=== PATIENT | female | born 1930 | race Caucasian/White ===

== ENCOUNTER 2017-04-14 09:09 | Inpatient (IN) | payer OTHER, MEDICARE ==
[~2017-04-14] VITALS: Ht 165.1 cm; Wt 93.1 kg
[2017-04-14 09:16] VITALS: BP 191/82; PULSE 79; RESP 19; TEMP 97.8; O2SAT 97
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
[2017-04-14 10:33] LABS: AUTOMATED NEUTROPHIL # 6.5 TH/MM3 (1.8-7.7); BASOPHIL % 0.4 % (0.0-2.0); EOSINOPHIL # 0.4 TH/MM3 (0-0.4); EOSINOPHIL % 3.9 % (0.0-4.0); HEMATOCRIT 34.2 % (35.0-46.0); HEMO FLAGS DIFF FINAL; LYMPH % 25.4 % (9.0-44.0); LYMPHOCYTE # 2.6 TH/MM3 (1.0-4.8); MEAN CELL VOLUME 72.6 FL (80.0-100.0); MEAN CORPUSCULAR HEMOGLOBIN 22.8 PG (27.0-34.0); MEAN CORPUSCULAR HGB CONC 31.4 % (32.0-36.0); MONO % 7.9 % (0.0-8.0); NEUT % 62.4 % (16.0-70.0); PLATELET COUNT 119 TH/MM3 (150-450); RED BLOOD COUNT 4.72 MIL/MM3 (4.00-5.30); RED CELL DISTRIBUTION WIDTH 16.2 % (11.6-17.2); WHITE BLOOD COUNT 10.4 TH/MM3 (4.0-11.0)
[2017-04-14 10:43] LABS: BACTERIA, URINE RARE /hpf; BLOOD, URINE MOD (NEG); COMMENT (UR) CULTURE INDICATED; CULTURE IF INDICATED CULTURE INDICATED; GLUCOSE,URINE NEG (NEG); KETONE, URINE NEG (NEG); NITRITE,URINE NEG (NEG); URINE COLOR YELLOW (YELLW/STRAW)
[2017-04-14 10:54] LABS: ALT (GPT) 28 U/L (10-53); ANION GAP 8 MEQ/L (5-15); AST (GOT) 38 U/L (15-37); BICARBONATE 26.4 MEQ/L (21.0-32.0); BLOOD UREA NITROGEN 24 MG/DL (7-18); CHLORIDE 105 MEQ/L (98-107); GLOMERULAR FILTRATION RATE 30 ML/MIN (>89); SODIUM (NA) 139 MEQ/L (136-145)
[2017-04-14 10:56] LABS: ALCOHOL LESS THAN 3 MG/DL (0-5)
[2017-04-14] MEDS ORDERED: CIPROFLOXACIN 500 MG TAB PO ONE (11:00)
[2017-04-14 11:04] LABS: ALKALINE PHOSPHATASE 75 U/L (45-117); TOTAL BILIRUBIN ADULT 0.6 MG/DL (0.2-1.0)
--- NOTE | 2017-04-14 11:10 | RADRPT ---
EXAM DATE/TIME: 04/14/2017 10:24 [facility] COMPARISON: No previous studies available for comparison. INDICATIONS : Altered mental status. RADIATION DOSE: 56.35 CTDIvol (mGy) MEDICAL HISTORY : Non-responsive. SURGICAL HISTORY : Non-responsive. ENCOUNTER: Initial ACUITY: 1 day PAIN SCALE: Non-responsive LOCATION: cranial TECHNIQUE: Multiple contiguous axial images were obtained of the head. Using automated exposure control and adj ustment of the mA and/or kV according to patient size, radiation dose was kept as low as reasonably a chievable to obtain optimal diagnostic quality images. DICOM format image data is available electro nically for review and comparison. FINDINGS: There is atrophy identified diffusely. There is no evidence of intracranial hemorrhage, acute infarct , or mass. There is atherosclerotic calcification of the distal vertebral arteries and bilateral inte rnal carotid arteries. No fractures. CONCLUSION: No acute disease. Macho Segura MD on April 14, 2017 at 11:07 Board Certified Radiologist. This report was verified electronically.
[2017-04-14] MEDS ORDERED: CIPR-9 PO (11:51)
[2017-04-14] MEDS ORDERED: LORazepam 2 MG/ML VIAL IM PRN ×2 (12:30→13:00)
[2017-04-14] MEDS ORDERED: LORazepam 1 MG TAB PO PRN (12:30)
[2017-04-14] MEDS ORDERED: LEVO175T2 PO (12:38)
[2017-04-14] MEDS ORDERED: GLIM4TAB PO (12:38)
[2017-04-14] MEDS ORDERED: LOSA100T PO (12:38)
[2017-04-14] MEDS ORDERED: CENTCHW4 CHEW (12:38)
[2017-04-14] MEDS ORDERED: TRIA37.53 PO (12:38)
[2017-04-14] MEDS ORDERED: SITA25 PO (12:38)
[2017-04-14] MEDS ORDERED: ASPI81TA11 PO (12:38)
[2017-04-14] MEDS ORDERED: METO50TA11 PO (12:38)
[2017-04-14] MEDS ORDERED: VITA1000 PO (12:38)
[2017-04-14] MEDS ORDERED: ATOR20TA15 PO (12:38)
[2017-04-14] MEDS ORDERED: ACETAMINOPHEN 325 MG TAB PO PRN (13:00)
[2017-04-14] MEDS ORDERED: ALUMINUM/MAGNESIUM/SIMETH 30 ML CUP PO PRN (13:00)
[2017-04-14] MEDS ORDERED: LORazepam 0.5 MG TAB PO PRN (13:00)
[2017-04-14] MEDS ORDERED: MAGNESIUM HYDROXIDE SUSP 30 ML CUP PO PRN (13:00)
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
[2017-04-14] MEDS ORDERED: DEXTROSE 50% IN WATER 50 ML VIAL(D50) IV PRN (14:30)
[2017-04-14] MEDS ORDERED: GLUCAGON 1 MG/ML VIAL OTHER PRN (14:30)
[2017-04-14] MEDS ORDERED: cloNIDine HCL 0.1 MG TAB PO PRN (14:45)
[2017-04-14] MEDS: INSULIN ASPART SUPPLEMENTAL SCALE SQ SCH ×2 (17:32→20:55)
[2017-04-14 17:46] VITALS: BP 184/85; PULSE 78; RESP 19; TEMP 98.4; O2SAT 95
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
[2017-04-14] MEDS: CIPROFLOXACIN 250 MG TAB PO SCH (20:55)
[2017-04-14] MEDS: ATORVASTATIN 20 MG TAB PO SCH (20:55)
[2017-04-14 21:54] LABS: TRANSFERRIN IRON PROFILE 243 MG/DL (200-360)
[2017-04-14 21:57] LABS: FERRITIN 46 NG/ML (8-252)
[2017-04-15] MEDS: LEVOTHYROXINE SODIUM 100 MCG TAB PO SCH (05:10)
[2017-04-15] MEDS: LEVOTHYROXINE SODIUM 88 MCG TAB PO SCH (05:10)
[2017-04-15 05:52] VITALS: BP 142/64; PULSE 71; RESP 16; TEMP 98; O2SAT 96
[2017-04-15] MEDS: INSULIN ASPART SUPPLEMENTAL SCALE SQ SCH ×4 (06:14→21:00)
[2017-04-15 08:00] LABS: AUTOMATED NEUTROPHIL # 6.9 TH/MM3 (1.8-7.7); BASOPHIL % 0.5 % (0.0-2.0); EOSINOPHIL # 0.4 TH/MM3 (0-0.4); EOSINOPHIL % 3.6 % (0.0-4.0); HEMATOCRIT 33.6 % (35.0-46.0); HEMO FLAGS DIFF FINAL; LYMPH % 18.6 % (9.0-44.0); LYMPHOCYTE # 1.9 TH/MM3 (1.0-4.8); MEAN CELL VOLUME 72.5 FL (80.0-100.0); MEAN CORPUSCULAR HEMOGLOBIN 22.5 PG (27.0-34.0); NEUT % 69.3 % (16.0-70.0); PLATELET COUNT 110 TH/MM3 (150-450); RED BLOOD COUNT 4.63 MIL/MM3 (4.00-5.30)
[2017-04-15 08:51] LABS: ALT (GPT) 27 U/L (10-53); ANION GAP 9 MEQ/L (5-15); AST (GOT) 40 U/L (15-37); BICARBONATE 24.2 MEQ/L (21.0-32.0); BLOOD UREA NITROGEN 20 MG/DL (7-18); CHLORIDE 107 MEQ/L (98-107); GLOMERULAR FILTRATION RATE 36 ML/MIN (>89); POTASSIUM 4.2 MEQ/L (3.5-5.1); SODIUM (NA) 140 MEQ/L (136-145)
[2017-04-15] MEDS: LOSARTAN 50 MG TAB PO SCH (09:12)
[2017-04-15] MEDS: CHOLECALCIFEROL (VIT D3) 1000 UNIT TAB PO SCH (09:12)
[2017-04-15] MEDS: METOPROLOL SUCCINATE 50 MG EXTENDED RELEASE TAB PO SCH (09:12)
[2017-04-15] MEDS: ASPIRIN EC 81 MG TABEC PO SCH (09:13)
[2017-04-15 09:16] LABS: ALKALINE PHOSPHATASE 70 U/L (45-117); HDL CHOLESTEROL 58.8 MG/DL (40.0-60.0); LDL CHOLESTEROL 48 MG/DL (0-99); TOTAL BILIRUBIN ADULT 0.8 MG/DL (0.2-1.0)
[2017-04-15] MEDS: CIPROFLOXACIN 250 MG TAB PO SCH (10:14)
[2017-04-15 10:50] LABS: HEMOGLOBIN A1a 1.6 %; HEMOGLOBIN A1b 1.1 %; HEMOGLOBIN Ao 79.3 %; HEMOGLOBIN F 1.5 %; HEMOGLOBIN LA1C 2.3 %; HEMOGLOBIN P3 4.8 %
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
[2017-04-15] MEDS: MULTIVITAMINS/MINERALS THERAPEUTIC TAB PO SCH (11:37)
[2017-04-15] MEDS ORDERED: ALUMINUM/MAGNESIUM/SIMETH 30 ML CUP PO PRN (12:00)
[2017-04-15] MEDS ORDERED: diphenhydrAMINE HCL 50 MG CAP PO PRN (12:00)
[2017-04-15] MEDS ORDERED: ACETAMINOPHEN 325 MG TAB PO PRN (12:00)
[2017-04-15] MEDS ORDERED: hydrOXYzine HCL 50 MG TAB PO PRN (12:00)
[2017-04-15] MEDS ORDERED: MAGNESIUM HYDROXIDE SUSP 30 ML CUP PO PRN (12:00)
[2017-04-15 17:49] VITALS: BP 158/69; PULSE 63; RESP 19; TEMP 97.5; O2SAT 97
--- NOTE | 2017-04-15 20:02 | EKG ---
Date Performed: 04/14/2017 Time Performed: 12:35:49 PTAGE: 86 years EKG: Sinus rhythm NORMAL ECG NO PREVIOUS TRACING DOCTOR: Carley Klein Interpretating Date/Time 04/15/2017 20:01:43
[2017-04-15] MEDS: CIPROFLOXACIN 500 MG TAB PO SCH (20:38)
[2017-04-15] MEDS: ATORVASTATIN 20 MG TAB PO SCH (20:38)
[2017-04-16 05:49] VITALS: BP 113/53; PULSE 68; RESP 18; TEMP 97.6
[2017-04-16] MEDS: LEVOTHYROXINE SODIUM 88 MCG TAB PO SCH (05:59)
[2017-04-16] MEDS: LEVOTHYROXINE SODIUM 100 MCG TAB PO SCH (05:59)
[2017-04-16] MEDS: INSULIN ASPART SUPPLEMENTAL SCALE SQ SCH ×4 (06:13→21:00)
[2017-04-16] MEDS: CIPROFLOXACIN 500 MG TAB PO SCH ×2 (09:28→19:48)
[2017-04-16] MEDS: METOPROLOL SUCCINATE 50 MG EXTENDED RELEASE TAB PO SCH (09:29)
[2017-04-16] MEDS: ASPIRIN EC 81 MG TABEC PO SCH (09:29)
[2017-04-16] MEDS: CHOLECALCIFEROL (VIT D3) 1000 UNIT TAB PO SCH (09:29)
[2017-04-16] MEDS: LOSARTAN 50 MG TAB PO SCH (09:29)
[2017-04-16 09:30] VITALS: BP 160/66; PULSE 70
[2017-04-16] MEDS: MULTIVITAMINS/MINERALS THERAPEUTIC TAB PO SCH (12:49)
--- NOTE | 2017-04-16 13:54 | HHI.PYPN ---
Subjective Remarks Patient is seen in day room with nurse Bev. Chart review. Patient overall calm cooperative though at times she is somewhat loud perhaps related to her hearing deficit. She is aware of the preparation going on for her to get her own room in the assisted but she is having is somewhat difficult time with the process. We encouraged her to remain calm that as soon as room is available she will be discharged. They should happen either tomorrow or Thursday Review of Systems Except as stated in HPI: all other systems reviewed are Neg Objective Alert: Yes [place]: Person, Place, Date, Situation Mood: Agitated, Angry, Calm Affect: Labile Memory Intact: Comment (fair) Hallucinations: Other (denies) Delusions: No Delusion Type: Other (somewhat vigilant) Suicidal: Ideation (denies) Homicidal: Ideation (denies) Insight/Judgment Poor Labs Date/Time Source Procedure Growth Status 04/14/17 10:20 Urine Clean Catch Urine Culture - Final Klebsiella Pneumoniae Complete Vitals/IOs Vital Signs Date Time Temp Pulse Resp B/P (MAP) Pulse Ox O2 Delivery O2 Flow Rate FiO2 04/16/17 09:30 70 160/66 (97) 04/16/17 05:49 97.6 18 04/15/17 17:49 97 Intake and Output 04/16/17 04/16/17 04/17/17 08:00 16:00 00:00 Intake Total 120 ml Balance 120 ml Assessment & Plan Problem List: (1) Adjustment disorder with mixed disturbance of emotions and conduct ICD Codes: F43.25 - Adjustment disorder with mixed disturbance of emotions and conduct Assessment & Plan Estimated LOS: days patient continues somewhat depressed and irritable but appears also to be situational related to the availability of her room and the placement. For now continue treatment Justification for Cont. Inpt. At this time patient may decompensate is not placed in an appropriate level of care Discharge Planning To be determined Request HC Surrog/Guard Advoc?: No Agustín Booth MD Apr 16, 2017 13:54
[2017-04-16] MEDS: ATORVASTATIN 20 MG TAB PO SCH (19:48)
[2017-04-17 05:39] VITALS: BP 143/65; PULSE 69; RESP 17; TEMP 97.5
[2017-04-17] MEDS: LEVOTHYROXINE SODIUM 100 MCG TAB PO SCH (06:06)
[2017-04-17] MEDS: LEVOTHYROXINE SODIUM 88 MCG TAB PO SCH (06:06)
[2017-04-17] MEDS: INSULIN ASPART SUPPLEMENTAL SCALE SQ SCH ×2 (06:43→12:02)
[2017-04-17] MEDS: CIPROFLOXACIN 500 MG TAB PO SCH (09:14)
[2017-04-17] MEDS: ASPIRIN EC 81 MG TABEC PO SCH (09:14)
[2017-04-17] MEDS: METOPROLOL SUCCINATE 50 MG EXTENDED RELEASE TAB PO SCH (09:15)
[2017-04-17] MEDS: CHOLECALCIFEROL (VIT D3) 1000 UNIT TAB PO SCH (09:15)
[2017-04-17] MEDS: LOSARTAN 50 MG TAB PO SCH (09:15)
[2017-04-17] MEDS ORDERED: METO50TA11 PO (10:02)
[2017-04-17] MEDS ORDERED: LEVO.1 PO (10:02)
[2017-04-17] MEDS ORDERED: VITA1000 PO (10:02)
[2017-04-17] MEDS ORDERED: ASPI-99 PO (10:02)
[2017-04-17] MEDS ORDERED: THERM PO (10:02)
[2017-04-17] MEDS ORDERED: CIPR-9 PO (10:02)
[2017-04-17] MEDS ORDERED: SYNT88TA PO (10:02)
[2017-04-17] MEDS ORDERED: SITA25 PO (10:02)
[2017-04-17] MEDS ORDERED: COZA50TA PO (10:02)
[2017-04-17] MEDS ORDERED: ATOR20TA15 PO (10:02)
[2017-04-17] MEDS: MULTIVITAMINS/MINERALS THERAPEUTIC TAB PO SCH (12:00)
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
== END 2017-04-17 12:10 | DRG 882 ==
LOC: NEPD 09:09 → NEDA 12:22 → H250 15:45
PROVIDERS: ADMIT Psychiatry & Neurology Psychiatry; ATTEND Psychiatry & Neurology Psychiatry
DX: F43.25 Adjustment disorder with mixed disturbance of emotions and conduct (principal); E11.9 Type 2 diabetes mellitus without complications; N39.0 Urinary tract infection, site not specified; I10 Essential (primary) hypertension; F29 Unspecified psychosis not due to a substance or known physiological condition; F32.9 Major depressive disorder, single episode, unspecified; E03.9 Hypothyroidism, unspecified; E78.5 Hyperlipidemia, unspecified; E56.9 Vitamin deficiency, unspecified; N28.9 Disorder of kidney and ureter, unspecified; Y04.0XXA Assault by unarmed brawl or fight, initial encounter; Y92.9 Unspecified place or not applicable
CPT/HCPCS: 70450; 80053; 80061; 80307; 81001; 82306; 82607; 82728; 82948; 83036; 83540; 83550; 84443; 85025; 87077; 87086; 87186; 93005; J1815; P9612